=== PATIENT | male | born 1955 | race African-American/Black ===

== ENCOUNTER 2020-07-12 13:44 | Emergency (ER) | payer MEDICARE, OTHER ==
[~2020-07-12] VITALS: Ht 165.1 cm; Wt 62.0 kg
[~2020-07-12 13:44] MED LIST: TOPUD PO
[2020-07-12 13:51] VITALS: BP 122/78
== END 2020-07-12 14:21 | disposition home or self-care (01) ==
LOC: ER 13:44
DX: Z48.02 Encounter for removal of sutures (principal); Z98.890 Other specified postprocedural states
CPT/HCPCS: 99281